=== PATIENT | female | born 1990 | race African-American/Black ===

== ENCOUNTER 2017-02-08 11:13 | Emergency (ER) | payer MEDICAID ==
[~2017-02-08] VITALS: Ht 167.6 cm; Wt 72.6 kg
[2017-02-08 15:18] VITALS: BP 110/68
== END 2017-02-08 15:14 | disposition home or self-care (01) ==
LOC: ER 11:17
DX: B37.3 Candidiasis of vulva and vagina (principal)

== ENCOUNTER 2017-09-01 20:41 | Emergency (ER) | payer MEDICAID ==
[~2017-09-01] VITALS: Ht 167.6 cm; Wt 72.6 kg
[2017-09-01 21:28] LABS: Basophils # (auto) 0.1 uL; Basophils % (auto) 0.8 % (0.0-2.0); Eosinophils # (auto) 0.2 uL; Eosinophils % (auto) 2.5 % (0.0-7.0); Hematocrit 42.5 % (36.0-46.0); Hemoglobin 14.2 g/dL (12.2-16.2); Lymphocytes # (auto) 2.8 uL; Lymphocytes % (auto) 40.6 % (10.0-50.0); Mean Corpuscular Hemoglobin 29.8 pg (28.0-32.0); Mean Corpuscular Hgb Conc. 33.3 g/dL (32.0-36.0); Mean Corpuscular Volume 89.5 fL (80.0-100.0); Mean Platelet Volume 9.7 fL (6.9-10.8); Monocytes # (auto) 0.6 uL; Monocytes % (auto) 8.5 % (0.0-12.0); Neutrophils # (auto) 3.3 uL; Neutrophils % (auto) 47.6 % (37.0-80.0); Nucleated Red Blood Cells % 0.1 %; Platelet Count (auto) 193 10^3/uL (140-450); Red Cell Distribution Width 14.1 % (11.8-14.3); White Blood Cell 6.9 10^3/uL (4.4-10.8)
[2017-09-01 21:31] LABS: Urine Bilirubin Negative (Negative); Urine Blood 2+ /uL (Negative); Urine Color Yellow (Yellow); Urine Glucose Normal (Normal); Urine Ketone Negative (Negative); Urine Mucus FEW (None Seen); Urine Nitrite Negative (Negative); Urine RBC 10 /hpf (0 - 4); Urine Squamous Epithelial Cell FEW /hpf (<5); Urine Urobilinogen Normal (Negative)
[2017-09-01 21:46] LABS: Albumin 3.7 g/dL (3.4-5.0); BUN/Creatinine Ratio 17.6; Bilirubin, Total 0.3 mg/dL (0.2-1.0); Calcium 8.7 mg/dL (8.5-10.1); Potassium 3.8 mmol/L (3.5-5.1); Total Protein 7.5 g/dL (6.4-8.2)
[2017-09-01] MEDS ORDERED: SODIUM CHLORIDE 0.9% 1,000 ML IV ONE (23:15)
[2017-09-01] MEDS ORDERED: ONDANSETRON HCL 4 MG/2 ML VIAL IV ONE (23:30)
[2017-09-02] MEDS ORDERED: KETOROLAC TROMETH 30 MG/ML 1ML VIAL IV ONE (00:15)
[2017-09-02 01:44] VITALS: BP 118/72
== END 2017-09-02 01:48 | disposition home or self-care (01) ==
LOC: ER 20:41
DX: K52.9 Noninfective gastroenteritis and colitis, unspecified (principal); K42.9 Umbilical hernia without obstruction or gangrene
CPT/HCPCS: 36415; 74176; 80053; 81001; 81025; 82150; 83690; 85025; 96361; 96374; 96375; 99285; J1885; J2405; J7030

== ENCOUNTER 2018-06-16 01:15 | Emergency (ER) | payer MEDICAID ==
[~2018-06-16] VITALS: Ht 167.6 cm; Wt 71.7 kg
[2018-06-16 01:33] VITALS: BP 101/69
== END 2018-06-16 04:48 | disposition home or self-care (01) ==
LOC: ER 01:19
DX: J02.9 Acute pharyngitis, unspecified (principal); H65.93 Unspecified nonsuppurative otitis media, bilateral

== ENCOUNTER 2019-05-08 08:54 | Emergency (ER) | payer MEDICAID ==
[~2019-05-08] VITALS: Ht 167.6 cm; Wt 68.9 kg
[2019-05-08 09:32] LABS: Basophils # (auto) 0 uL; Basophils % (auto) 0.6 % (0.0-2.0); Eosinophils # (auto) 0.2 uL; Eosinophils % (auto) 3.9 % (0.0-7.0); Hematocrit 45.2 % (36.0-46.0); Lymphocytes # (auto) 1.4 uL; Lymphocytes % (auto) 29.9 % (10.0-50.0); Mean Corpuscular Hemoglobin 30.1 pg (28.0-32.0); Mean Corpuscular Hgb Conc. 33.1 g/dL (32.0-36.0); Monocytes # (auto) 0.6 uL; Monocytes % (auto) 13.3 % (0.0-12.0); Neutrophils # (auto) 2.5 uL; Neutrophils % (auto) 52.3 % (37.0-80.0); Nucleated Red Blood Cells % 0.1 %; Platelet Count (auto) 181 10^3/uL (140-450); Red Blood Cells 4.97 10^6/uL (4.0-5.20); Red Cell Distribution Width 14.3 % (11.8-14.3); White Blood Cell 4.8 10^3/uL (4.4-10.8)
[2019-05-08 09:42] LABS: Albumin 3.7 g/dL (3.4-5.0); Anion Gap 8 (5-15); Blood Urea Nitrogen 12 mg/dL (7-18); Calcium 8.3 mg/dL (8.5-10.1); Carbon Dioxide 27 mmol/L (21-32); Chloride 108 mmol/L (98-107); Glucose 90 mg/dL (74-106); Potassium 3.9 mmol/L (3.5-5.1); Sodium 143 mmol/L (136-145)
[2019-05-08 09:44] LABS: Alanine Aminotransferase 21 U/L (13-56); Aspartate Aminotransferase 13 U/L (15-37); BUN/Creatinine Ratio 16.2; GFR African American 121 mL/min; GFR Non-African American 100 mL/min
[2019-05-08 09:52] LABS: Alkaline Phosphatase 42 U/L (45-117); Bilirubin, Total 0.5 mg/dL (0.2-1.0); Total Protein 7.2 g/dL (6.4-8.2)
[2019-05-08 09:56] LABS: Urine Bacteria NONE SEEN /hpf (None Seen); Urine Blood 1+ /uL (Negative); Urine WBC 2 /hpf (0 - 5)
[2019-05-08 11:25] VITALS: BP 102/68
== END 2019-05-08 11:45 | disposition home or self-care (01) ==
LOC: ER 08:54
DX: K58.0 Irritable bowel syndrome with diarrhea (principal); Z90.49 Acquired absence of other specified parts of digestive tract
CPT/HCPCS: 36415; 80053; 81001; 81025; 85025

== ENCOUNTER 2019-06-17 08:07 | Emergency (ER) | payer BC, MEDICAID ==
[~2019-06-17] VITALS: Ht 167.6 cm; Wt 68.0 kg
[2019-06-17 08:25] VITALS: BP 107/64
[2019-06-17] MEDS ORDERED: EPINEPHrine HCL 1 MG/1 ML AMP SC ONE (09:00)
[2019-06-17] MEDS ORDERED: methylPREDNISolone SOD SUCC 125 MG/2 ML VL IM ONE (09:00)
== END 2019-06-17 09:39 | disposition home or self-care (01) ==
LOC: ER 08:07
DX: T78.40XA Allergy, unspecified, initial encounter (principal); F12.10 Cannabis abuse, uncomplicated; Z90.89 Acquired absence of other organs; X58.XXXA Exposure to other specified factors, initial encounter
CPT/HCPCS: 96372; 99283; J0171; J2930

== ENCOUNTER 2020-05-07 19:06 | Emergency (ER) | payer BC, MEDICAID ==
[~2020-05-07] VITALS: Ht 167.6 cm; Wt 68.0 kg
[2020-05-07 19:59] VITALS: BP 107/67
== END 2020-05-07 20:01 | disposition home or self-care (01) ==
LOC: ER 19:06
DX: J06.9 Acute upper respiratory infection, unspecified (principal); Z90.49 Acquired absence of other specified parts of digestive tract

== ENCOUNTER → 2021-08-02 | Outpatient (CLI) | payer BC ==
[2021-08-02 10:17] LABS: Urine WBC None Seen /hpf (0 - 5)
[2021-08-02 10:36] LABS: Basophils # (auto) 0 10 ^3/uL (0-0.2); Basophils % (auto) 0.8 % (0.0-2.0); Eosinophils # (auto) 0.2 10 ^3/uL (0-0.8); Eosinophils % (auto) 3.6 % (0.0-7.0); Hematocrit 43.7 % (36.0-46.0); Hemoglobin 14.5 g/dL (12.2-16.2); Lymphocytes # (auto) 1.9 10 ^3/uL (0.4-5.4); Lymphocytes % (auto) 37.5 % (10.0-50.0); Mean Corpuscular Hemoglobin 30.2 pg (28.0-32.0); Mean Corpuscular Hgb Conc. 33.1 g/dL (32.0-36.0); Mean Corpuscular Volume 91.2 fL (80.0-100.0); Monocytes # (auto) 0.3 10 ^3/uL (0-1.3); Monocytes % (auto) 6.9 % (0.0-12.0); Neutrophils # (auto) 2.5 10 ^3/uL (1.6-8.6); Neutrophils % (auto) 51.2 % (37.0-80.0); Red Cell Distribution Width 13.9 % (11.8-14.3); White Blood Cell 4.9 10^3/uL (4.4-10.8)
[2021-08-02 10:50] LABS: Urine Bacteria FEW /hpf (None Seen); Urine Blood Negative /uL (Negative)
[2021-08-02 11:43] LABS: Calcium 8.9 mg/dL (8.5-10.1); Potassium 3.9 mmol/L (3.5-5.1)
[2021-08-02 11:47] LABS: Albumin 3.9 g/dL (3.4-5.0); BUN/Creatinine Ratio 12.5; Bilirubin, Total 0.4 mg/dL (0.2-1.0); Total Protein 7.3 g/dL (6.4-8.2)
[2021-08-05 06:06] LABS: RPR Non Reactive (Non Reactive)
== END | disposition home or self-care (01) ==
LOC: LAB 09:57
PROVIDERS: ATTEND Student in an Organized Health Care Education/Training Program
DX: E55.9 Vitamin D deficiency, unspecified (principal); R03.0 Elevated blood-pressure reading, without diagnosis of hypertension; R73.9 Hyperglycemia, unspecified; Z20.2 Contact with and (suspected) exposure to infections with a predominantly sexual mode of transmission
CPT/HCPCS: 36415; 80053; 80061; 81001; 82306; 83036; 84443; 85025; 86592; 86703

== ENCOUNTER 2021-08-03 00:10 | Emergency (ER) | payer BC, MEDICAID ==
[~2021-08-03] VITALS: Ht 167.6 cm; Wt 78.9 kg
[2021-08-03 02:00] VITALS: BP 128/73
== END 2021-08-03 03:25 | disposition home or self-care (01) ==
LOC: ER 00:10
DX: N76.0 Acute vaginitis (principal); Z87.440 Personal history of urinary (tract) infections; Z90.89 Acquired absence of other organs
CPT/HCPCS: 87210

== ENCOUNTER → 2022-04-06 | Outpatient (CLI) | payer BC, MEDICAID ==
[2022-04-07 07:11] LABS: RPR Non Reactive (Non Reactive)
== END | disposition home or self-care (01) ==
LOC: LAB 12:26
PROVIDERS: ATTEND Student in an Organized Health Care Education/Training Program
DX: Z20.2 Contact with and (suspected) exposure to infections with a predominantly sexual mode of transmission (principal)
CPT/HCPCS: 86592; 86703

== ENCOUNTER → 2023-01-04 | Outpatient (CLI) | payer BC, MEDICAID ==
[2023-01-04 12:28] LABS: Basophils # (auto) 0 10 ^3/uL (0-0.2); Basophils % (auto) 0.2 % (0.0-2.0); Eosinophils # (auto) 0.4 10 ^3/uL (0-0.8); Hematocrit 43.2 % (36.0-46.0); Hemoglobin 14.5 g/dL (12.2-16.2); Lymphocytes # (auto) 1.8 10 ^3/uL (0.4-5.4); Mean Corpuscular Hemoglobin 30.3 pg (28.0-32.0); Mean Corpuscular Hgb Conc. 33.5 g/dL (32.0-36.0); Mean Corpuscular Volume 90.4 fL (80.0-100.0); Monocytes # (auto) 0.5 10 ^3/uL (0-1.3); Monocytes % (auto) 7.9 % (0.0-12.0); Neutrophils # (auto) 3.9 10 ^3/uL (1.6-8.6); Neutrophils % (auto) 58.9 % (37.0-80.0); Nucleated Red Blood Cells % 0.1 %; Red Blood Cells 4.77 10^6/uL (4.0-5.20); Red Cell Distribution Width 13.7 % (11.8-14.3); White Blood Cell 6.6 10^3/uL (4.4-10.8)
[2023-01-04 12:49] LABS: Urine Bacteria NONE SEEN /hpf (None Seen); Urine Blood TRACE /uL (Negative); Urine Specific Gravity 1.005 (1.001-1.035); Urine WBC <1 /hpf (0 - 5)
[2023-01-04 13:08] LABS: Albumin 3.8 g/dL (3.4-5.0); BUN/Creatinine Ratio 17.9; Bilirubin, Total 0.5 mg/dL (0.2-1.0); Calcium 8.7 mg/dL (8.5-10.1); Potassium 3.8 mmol/L (3.5-5.1); Total Protein 7.2 g/dL (6.4-8.2)
[2023-01-05 07:06] LABS: RPR Non Reactive (Non Reactive)
== END | disposition home or self-care (01) ==
LOC: LAB 11:55
PROVIDERS: ATTEND Student in an Organized Health Care Education/Training Program
DX: K21.9 Gastro-esophageal reflux disease without esophagitis (principal); R73.9 Hyperglycemia, unspecified; R03.0 Elevated blood-pressure reading, without diagnosis of hypertension; Z20.2 Contact with and (suspected) exposure to infections with a predominantly sexual mode of transmission
CPT/HCPCS: 36415; 80053; 80061; 81001; 83036; 84443; 85025; 86592; 86703

== ENCOUNTER 2023-04-21 20:18 | Emergency (ER) | payer OTHER, MEDICAID ==
[~2023-04-21] VITALS: Ht 167.6 cm; Wt 80.6 kg
[2023-04-21 21:15] LABS: Urine Bacteria FEW /hpf (None Seen); Urine Blood Negative /uL (Negative); Urine Mucus FEW (None Seen); Urine Specific Gravity 1.028 (1.001-1.035); Urine WBC 10 /hpf (0 - 5)
[2023-04-21 21:16] LABS: Basophils # (auto) 0.1 10 ^3/uL (0-0.2); Basophils % (auto) 0.8 % (0.0-2.0); Eosinophils # (auto) 0.2 10 ^3/uL (0-0.8); Eosinophils % (auto) 3.1 % (0.0-7.0); Hematocrit 39.3 % (36.0-46.0); Hemoglobin 13.1 g/dL (12.2-16.2); Lymphocytes # (auto) 2.4 10 ^3/uL (0.4-5.4); Lymphocytes % (auto) 30.1 % (10.0-50.0); Mean Corpuscular Hemoglobin 29.7 pg (28.0-32.0); Mean Corpuscular Hgb Conc. 33.2 g/dL (32.0-36.0); Mean Corpuscular Volume 89.4 fL (80.0-100.0); Monocytes # (auto) 0.6 10 ^3/uL (0-1.3); Monocytes % (auto) 7.3 % (0.0-12.0); Neutrophils # (auto) 4.6 10 ^3/uL (1.6-8.6); Neutrophils % (auto) 58.7 % (37.0-80.0); Red Cell Distribution Width 13.8 % (11.8-14.3); White Blood Cell 7.9 10^3/uL (4.4-10.8)
[2023-04-21 21:31] LABS: Albumin 3.8 g/dL (3.4-5.0); Calcium 8.9 mg/dL (8.5-10.1)
[2023-04-21 21:43] LABS: BUN/Creatinine Ratio 15.3 (10.0-20.0); Bilirubin, Total 0.4 mg/dL (0.2-1.0)
[2023-04-21 23:28] VITALS: BP 103/64
== END 2023-04-21 23:31 | disposition home or self-care (01) ==
LOC: ER 20:18
DX: O26.891 Other specified pregnancy related conditions, first trimester (principal); R10.2 Pelvic and perineal pain; F12.90 Cannabis use, unspecified, uncomplicated; Z3A.01 Less than 8 weeks gestation of pregnancy; Z90.49 Acquired absence of other specified parts of digestive tract
CPT/HCPCS: 36415; 76801; 80053; 81001; 84702; 85025

== ENCOUNTER 2023-11-30 20:23 | Inpatient (IN) | payer OTHER, MEDICAID ==
[~2023-11-30] VITALS: Ht 167.6 cm; Wt 88.0 kg
[2023-11-30] MEDS ORDERED: DIPHENOXYLATE W/ATROPINE 2.5 MG TAB PO PRN (23:30)
[2023-11-30] MEDS ORDERED: BUTORPHANOL TARTRATE 2 MG/1 ML VIAL IV PRN ×2 (23:30)
[2023-11-30] MEDS ORDERED: LACTATED RINGER'S 1,000 ML IV SCH (23:30)
[2023-11-30] MEDS ORDERED: LIDOCAINE 2%HCL (LOCAL ANESTH.) INJ 20ML MDV IJ PRN (23:30)
[2023-11-30] MEDS ORDERED: METHYLERGONOVINE MALEATE 0.2 MG/ML AMP IM ONE (23:30)
[2023-11-30] MEDS ORDERED: PROMETHAZINE HCL 25 MG/ML 1ML IV PRN (23:30)
[2023-11-30] MEDS ORDERED: miSOPROStol 100 mcg TAB SL PRN (23:45)
[2023-11-30] MEDS ORDERED: CARBOPROST TROMETHAMINE 250 MCG/1ML VIAL IM PRN (23:45)
[2023-11-30] MEDS ORDERED: miSOPROStol 100 mcg TAB PR PRN (23:45)
[2023-11-30] MEDS: PENICILLIN G POT 5MIL/D5 50ML 50 ML IV ONE (23:59)
[2023-12-01] MEDS ORDERED: PROMETHAZINE HCL 25 MG/ML 1ML IM PRN
[2023-12-01] MEDS ORDERED: LACT. RINGERS/OXYTOCIN 20UNITS 500 ML IV ONE
[2023-12-01] MEDS ORDERED: MINERAL OIL TOPICAL 10ml TOP PRN
[2023-12-01 00:04] LABS: Basophils # (auto) 0 10 ^3/uL (0-0.2); Basophils % (auto) 0.2 % (0.0-2.0); Eosinophils # (auto) 0.2 10 ^3/uL (0-0.8); Eosinophils % (auto) 1.6 % (0.0-7.0); Hematocrit 41.5 % (36.0-46.0); Hemoglobin 13.9 g/dL (12.2-16.2); Lymphocytes # (auto) 2.3 10 ^3/uL (0.4-5.4); Lymphocytes % (auto) 23.3 % (10.0-50.0); Mean Corpuscular Hemoglobin 30.1 pg (28.0-32.0); Mean Corpuscular Hgb Conc. 33.4 g/dL (32.0-36.0); Mean Corpuscular Volume 90.1 fL (80.0-100.0); Monocytes # (auto) 0.8 10 ^3/uL (0-1.3); Monocytes % (auto) 8.1 % (0.0-12.0); Neutrophils # (auto) 6.6 10 ^3/uL (1.6-8.6); Neutrophils % (auto) 66.8 % (37.0-80.0); Nucleated Red Blood Cells % 0.1 %; Red Blood Cells 4.61 10^6/uL (4.0-5.20); Red Cell Distribution Width 14.8 % (11.8-14.3); White Blood Cell 9.8 10^3/uL (4.4-10.8)
[2023-12-01 00:04] LABS: Urine Bacteria FEW /hpf (None Seen); Urine Blood Negative /uL (Negative); Urine Clarity Clear (Clear); Urine Color Yellow (Yellow); Urine Mucus FEW (None Seen); Urine Protein, UAD 1+ (Negative); Urine Specific Gravity 1.032 (1.001-1.035); Urine WBC 2 /hpf (0 - 5); Urine pH 6.5 (5.0-8.0)
[2023-12-01 00:14] LABS: Amphetamine Screen, Urine Neg (NEGATIVE); Barbiturate Scree,Urine Neg (NEGATIVE); Benzodiazephine Screen, Urine Neg (NEGATIVE); Cocaine Screen, Urine Neg (NEGATIVE)
[2023-12-01 00:15] LABS: Cannabinoid Screen, Urine Neg (NEGATIVE); Opiate Scree,Urine Neg (NEGATIVE); Phencyclidine Screen, Urine Neg (NEGATIVE)
[2023-12-01 00:18] LABS: Alanine Aminotransferase 12 U/L (7-40); Albumin 4.1 g/dL (3.2-4.8); Alkaline Phosphatase 126 U/L (46-116); Anion Gap 8 (5-15); Aspartate Aminotransferase 16 U/L (13-40); BUN/Creatinine Ratio 10.3 (10.0-20.0); Blood Urea Nitrogen 7 mg/dL (9-23); Calcium 9.3 mg/dL (8.7-10.4); Carbon Dioxide 23 mmol/L (20-30); Chloride 105 mmol/L (98-107); Glucose 125 mg/dL (74-106); Potassium 3.9 mmol/L (3.5-5.1); Sodium 136 mmol/L (136-145)
[2023-12-01 00:19] LABS: Bilirubin, Total 0.5 mg/dL (0.2-1.0); INR 0.9 (0.9-1.15); Partial Thromboplastin Time 26.5 SEC (24.5-34.5); Prothrombin Time 9.5 sec (9.3-11.8); Total Protein 6.7 g/dL (5.7-8.2)
[2023-12-01] MEDS ORDERED: NALOXONE HCL 0.4 MG/ML VIAL IV ONE (00:30)
[2023-12-01] MEDS ORDERED: LACTATED RINGER'S 1,000 ML IV ONE (00:30)
[2023-12-01] MEDS ORDERED: ePHEDrine SULFATE 50 MG/ML AMP IV ONE (00:30)
[2023-12-01] MEDS: ROPIVACAINE HCL 100 ML ONE (01:21)
[2023-12-01] MEDS: fentaNYL CITRATE 100 MCG/2 ML VL IV PRN (01:22)
[2023-12-01] MEDS: PENICILLIN G POTASSIUM 2,500,000 UNITS in D5W 5% 50 ML IV SCH (03:37)
[2023-12-01] MEDS: ONDANSETRON HCL 4 MG/2 ML VIAL IV PRN (03:43)
[2023-12-01] MEDS: LACT. RINGERS/OXYTOCIN 20UNITS 500 ML IV ONE (05:04)
[2023-12-01] MEDS: DERMOPLAST 60ML BOTTLE TOP PRN (05:07)
[2023-12-01] MEDS: WITCH HAZEL-GLYCERIN PAD TOP PRN (05:07)
[2023-12-01] MEDS: PHISODERM TOP SOLN 240ML BTL TOP PRN (05:07)
[2023-12-01] MEDS ORDERED: ACETAMINOPHEN 325 MG TAB PO PRN (05:30)
[2023-12-01] MEDS: IBUPROFEN 600 MG TAB PO PRN (05:53)
[2023-12-01] MEDS: LACT. RINGERS/OXYTOCIN 20UNITS 1,000 ML IV SCH (05:54)
[2023-12-01 07:00] VITALS: BP 101/64; PULSE 85; RESP 18; TEMP 98.1; O2SAT 96
[2023-12-01 08:00] VITALS: PULSE 88; RESP 18; O2SAT 96
[2023-12-01 11:30] VITALS: BP 105/65; PULSE 85; RESP 18; TEMP 98.6; O2SAT 96
[2023-12-01 15:00] VITALS: BP 110/68; PULSE 87; RESP 18; TEMP 98.2; O2SAT 96
[2023-12-01 19:00] VITALS: BP 97/61; PULSE 80; RESP 16; TEMP 98.7; O2SAT 97
[2023-12-01] MEDS: DOCUSATE SOD 100 MG CAP PO SCH (22:15)
[2023-12-01 23:00] VITALS: BP 105/61; PULSE 78; RESP 16; O2SAT 97
[2023-12-02] MEDS ORDERED: PRENCAP75 PO ×2 (01:24→01:29)
[2023-12-02] MEDS ORDERED: DOCU-265 PO ×2 (01:24→01:29)
[2023-12-02] MEDS ORDERED: IBU600T PO ×2 (01:24→01:29)
[2023-12-02 03:00] VITALS: BP 106/63; PULSE 81; TEMP 98.7; O2SAT 97
[2023-12-02 06:50] VITALS: BP 99/67; PULSE 88; RESP 16; TEMP 98.8; O2SAT 99
[2023-12-02 07:00] VITALS: RESP 18
[2023-12-02 07:40] LABS: Basophils # (auto) 0 10 ^3/uL (0-0.2); Basophils % (auto) 0.4 % (0.0-2.0); Eosinophils # (auto) 0.2 10 ^3/uL (0-0.8); Eosinophils % (auto) 1.6 % (0.0-7.0); Hematocrit 36.6 % (36.0-46.0); Hemoglobin 12.2 g/dL (12.2-16.2); Lymphocytes # (auto) 2.8 10 ^3/uL (0.4-5.4); Lymphocytes % (auto) 23.6 % (10.0-50.0); Mean Corpuscular Hemoglobin 30.4 pg (28.0-32.0); Mean Corpuscular Hgb Conc. 33.5 g/dL (32.0-36.0); Mean Corpuscular Volume 90.7 fL (80.0-100.0); Monocytes # (auto) 0.7 10 ^3/uL (0-1.3); Monocytes % (auto) 5.8 % (0.0-12.0); Neutrophils % (auto) 68.6 % (37.0-80.0); Red Blood Cells 4.03 10^6/uL (4.0-5.20); Red Cell Distribution Width 14.5 % (11.8-14.3); White Blood Cell 11.7 10^3/uL (4.4-10.8)
[2023-12-02 08:07] LABS: RPR Non Reactive (Non Reactive)
[2023-12-02 08:20] VITALS: TEMP 37.1
[2023-12-03 20:06] LABS: Treponema pallidum Ab (FTA-Ab) Non Reactive (Non Reactive)
== END 2023-12-02 09:28 | disposition home or self-care (01) | DRG 807 ==
LOC: LDRP 20:23 → OBSVTOIN 23:28 → LDRP 23:29
PROVIDERS: ADMIT Obstetrics & Gynecology; ATTEND Obstetrics & Gynecology
PROC: 10E0XZZ Delivery of Products of Conception, External Approach (ICD-10-PCS; principal; 2023-12-01)
DX: O99.824 Streptococcus B carrier state complicating childbirth (principal); Z37.0 Single live birth; Z3A.40 40 weeks gestation of pregnancy; Z67.20 Type B blood, Rh positive; O77.0 Labor and delivery complicated by meconium in amniotic fluid
CPT/HCPCS: 36415; 59025; 59409; 62282; 76818; 80053; 80307; 81001; 81002; 85025; 85610; 85730; 86592; 86850; 86900; 86901; 94760; 96360; 96361; 96365; 96366; 96374; G0378; J2405; J2540; J2590; J7060

== ENCOUNTER 2024-07-14 07:58 | Day surgery (SDC) | payer OTHER, MEDICAID ==
[~2024-07-14] VITALS: Ht 167.6 cm; Wt 88.0 kg
[2024-07-14] MEDS ORDERED: ceFAZolin 2 GM/D5W100ml 100 ML IV ONE (08:01)
[2024-07-14] MEDS ORDERED: ROCURONIUM 10MG/ML 10ML VIAL IV ONE (08:15)
[2024-07-14] MEDS ORDERED: NEOSTIGMINE 1 MG/ML INJ (10mg/10ML VIAL) ONE (08:15)
[2024-07-14] MEDS ORDERED: SODIUM CHLORIDE LOCK 10 ML ONE (08:15)
[2024-07-14] MEDS ORDERED: MEPERIDINE HCL (50 MG/ML) 1 ML VIAL ONE (08:15)
[2024-07-14] MEDS ORDERED: ONDANSETRON HCL 4 MG/2 ML VIAL ONE (08:15)
[2024-07-14] MEDS ORDERED: MIDAZOLAM HCL 2MG/2ML 2ml VIAL (1mg/ml) ONE (08:15)
[2024-07-14] MEDS ORDERED: GLYCOPYRROLATE 0.2 MG/ML 1ML VIAL ONE (08:15)
[2024-07-14] MEDS ORDERED: KETAMINE 50mg/ML 1ml syringe ONE (08:15)
[2024-07-14] MEDS ORDERED: fentaNYL CITRATE 100 MCG/2 ML VL ONE ×2 (08:15→10:13)
[2024-07-14] MEDS ORDERED: LIDOCAINE HCL 2% TOP JELLY 5ML TOP ONE (08:15)
[2024-07-14] MEDS ORDERED: PROPOFOL 10 MG/ML 20 ML IV ONE ×2 (08:15→10:02)
[2024-07-14] MEDS ORDERED: LIDOCAINE 1% INJ PF 5ML AMP ONE (08:15)
[2024-07-14] MEDS ORDERED: HYDR-4072 PO (09:09)
[2024-07-14] MEDS ORDERED: ZOFR4T PO (09:09)
[2024-07-14] MEDS ORDERED: IBUP-1456 PO (09:09)
[2024-07-14] MEDS ORDERED: BUPIVACAINE 0.25% INJ 50ML VIAL ONE (09:32)
[2024-07-14] MEDS ORDERED: LIDOCAINE W/ EPINEPHRINE 1% 20ML VIAL ONE (09:32)
[2024-07-14] MEDS ORDERED: ONDANSETRON HCL 4 MG/2 ML VIAL IV PRN (09:45)
[2024-07-14] MEDS ORDERED: MORPHINE SULFATE INJ 2 MG/ml SYRG IV PRN (09:45)
[2024-07-14] MEDS ORDERED: METOCLOPRAMIDE HCL 5MG/ml INJ 2ml VIAL IV ONE (09:45)
[2024-07-14] MEDS ORDERED: LACTATED RINGER'S 1,000 ML IV SCH (09:45)
[2024-07-14] MEDS ORDERED: HYDROmorphone HCL 2 MG/ML VL/or syr IV PRN ×2 (09:45)
[2024-07-14] MEDS ORDERED: KETOROLAC TROMETH 30 MG/ML 1ML VIAL IV ONE (09:45)
[2024-07-14] MEDS: BUPIVACAINE 0.25% INJ 50ML VIAL IJ ONE (10:22)
[2024-07-14 10:29] VITALS: PULSE 120; RESP 13; O2SAT 98
[2024-07-14 10:30] VITALS: TEMP 98.2
[2024-07-14] MEDS: fentaNYL CITRATE 100 MCG/2 ML VL IV PRN (10:45)
[2024-07-14 11:05] VITALS: BP 132/84; PULSE 92; RESP 12; O2SAT 99
== END 2024-07-14 11:15 | disposition home or self-care (01) ==
LOC: SUR 07:58
PROVIDERS: ATTEND Obstetrics & Gynecology
DX: Z30.2 Encounter for sterilization (principal); E66.01 Morbid (severe) obesity due to excess calories; Z68.30 Body mass index [BMI] 30.0-30.9, adult; Z90.49 Acquired absence of other specified parts of digestive tract; Z88.1 Allergy status to other antibiotic agents
CPT/HCPCS: 58671; 86850; 86900; 86901; A4264; J2175; J2250; J2405; J2704; J3010; J3490

== ENCOUNTER 2024-07-18 16:25 | Emergency (ER) | payer OTHER, MEDICAID ==
[~2024-07-18] VITALS: Ht 167.6 cm; Wt 88.9 kg
[~2024-07-18 16:25] MED LIST: HYDR-4072 PO; IBUP-1456 PO; ZOFR4T PO
[2024-07-18 17:50] LABS: Basophils # (auto) 0 10 ^3/uL (0-0.2); Basophils % (auto) 0.5 % (0.0-2.0); Eosinophils # (auto) 0.4 10 ^3/uL (0-0.8); Eosinophils % (auto) 4.1 % (0.0-7.0); Hematocrit 41.8 % (36.0-46.0); Hemoglobin 14.4 g/dL (12.2-16.2); Lymphocytes # (auto) 2.8 10 ^3/uL (0.4-5.4); Lymphocytes % (auto) 30.7 % (10.0-50.0); Mean Corpuscular Hemoglobin 30.6 pg (28.0-32.0); Mean Corpuscular Hgb Conc. 34.5 g/dL (32.0-36.0); Mean Corpuscular Volume 88.6 fL (80.0-100.0); Monocytes # (auto) 0.6 10 ^3/uL (0-1.3); Monocytes % (auto) 6.2 % (0.0-12.0); Neutrophils # (auto) 5.3 10 ^3/uL (1.6-8.6); Neutrophils % (auto) 58.5 % (37.0-80.0); Platelet Count (auto) 205 10^3/uL (140-450); Red Blood Cells 4.72 10^6/uL (4.0-5.20); Red Cell Distribution Width 14.2 % (11.8-14.3)
[2024-07-18 17:58] LABS: Urine Bacteria None Seen /hpf (None Seen)
[2024-07-18 18:09] LABS: Alanine Aminotransferase 18 U/L (7-40); Albumin 4.6 g/dL (3.2-4.8); Alkaline Phosphatase 58 U/L (46-116); Anion Gap 7 (5-15); Aspartate Aminotransferase 9 U/L (13-40); BUN/Creatinine Ratio 15.4 (10.0-20.0); Bilirubin, Total 0.4 mg/dL (0.2-1.0); Blood Urea Nitrogen 12 mg/dL (9-23); Calcium 9.7 mg/dL (8.7-10.4); Carbon Dioxide 26 mmol/L (20-30); Chloride 105 mmol/L (98-107); Glucose 104 mg/dL (74-106); Potassium 4.1 mmol/L (3.5-5.1); Sodium 138 mmol/L (136-145); Total Protein 7.3 g/dL (5.7-8.2)
[2024-07-18 18:25] LABS: Urine Blood Negative /uL (Negative); Urine Clarity Clear (Clear); Urine Color Light-Yellow (Yellow); Urine Mucus FEW (None Seen); Urine Protein, UAD Negative (Negative); Urine Specific Gravity 1.025 (1.001-1.035); Urine Urobilinogen Normal (Negative); Urine WBC 1 /hpf (0 - 5); Urine pH 6.5 (5.0-9.0)
[2024-07-18] MEDS ORDERED: NITR-87 PO (19:41)
[2024-07-18 20:20] VITALS: BP 118/64; PULSE 75; RESP 17; TEMP 98; O2SAT 97
== END 2024-07-18 20:30 | disposition home or self-care (01) ==
LOC: ER 16:25
DX: N39.0 Urinary tract infection, site not specified (principal); Z79.899 Other long term (current) drug therapy; Z90.49 Acquired absence of other specified parts of digestive tract; Z98.890 Other specified postprocedural states
CPT/HCPCS: 36415; 74176; 80053; 81001; 85025